=== PATIENT | female | born 1950 | race Caucasian/White ===

== ENCOUNTER → 2023-06-19 10:37 | Outpatient (REF) | payer MEDICARE, OTHER, SELFPAY | LOC: WDC 10:37 | PROVIDERS: ATTENDING PHYSICIAN Family Medicine | DX: R92.2 Inconclusive mammogram (principal) | CPT/HCPCS: 76641 ==

== ENCOUNTER → 2023-09-10 09:43 | Outpatient (REF) | payer MEDICARE, OTHER, SELFPAY | LOC: HWRAD 09:43 | PROVIDERS: ATTENDING PHYSICIAN Urology; FAMILY PHYSICIAN Family Medicine | DX: N39.0 Urinary tract infection, site not specified (principal); N20.0 Calculus of kidney | CPT/HCPCS: 76775 ==

== ENCOUNTER → 2023-09-11 08:30 | Outpatient (REF) | payer MEDICARE, OTHER, SELFPAY ==
[2023-09-11 09:45] LABS: % Basophils 0.7 % (0-2); % Immature Granulocytes 0.3 % (0-0.5); % Lymphocytes 14.1 % (20.5-51.1); % Monocytes 7.7 % (1.7-9.3); % Neutrophils 77.2 % (42.2-75.2); Absolute Lymphocytes 0.8 10^3/uL (1.2-3.4); Absolute Monocytes 0.4 10^3/uL (0.1-0.6); Absolute Neutrophils 4.4 10^3/uL (1.4-6.5); Hematocrit 41.4 % (37.0-47.0); Hemoglobin 14.1 g/dL (12.0-16.0); Mean Corp Hgb Conc. 34.1 g/dL (33.0-37.0); Mean Corpuscular Hgb 30.8 pg (27.0-31.0); Mean Corpuscular Volume 90.4 fL (81.0-99.0); Mean Platelet Volume 9.5 fL (7.4-10.4); Nucleated Red Blood Cells % 0 %; Platelet Count 270 10^3/uL (130-400); Red Blood Cell Count 4.58 10^6/uL (4.20-5.40); Red Cell Dist. Width 13.2 % (11.5-14.5); White Blood Cell Count 5.7 10^3/uL (4.8-10.8)
[2023-09-11 09:47] LABS: Urine Albumin Negative (Neg - Trace); Urine Bilirubin Negative (Negative); Urine Character Clear (Clear); Urine Color Yellow; Urine Glucose Negative (Negative); Urine Ketone Negative (Negative); Urine Leukocyte Negative (Negative); Urine Nitrite Negative (Negative); Urine Occult Blood Negative (Negative); Urine Specific Gravity 1.005 (<1.030); Urine Urobilinogen Negative (Neg - 1+); Urine pH 6.5 (5.0-9.0)
[2023-09-11 12:32] LABS: Vitamin D, 25-OH*** 40.2 ng/mL (30-80)
[2023-09-11 12:46] LABS: TSH Reflex To Free T4 0.88 uIU/ml (0.47-4.68)
[2023-09-11 12:58] LABS: ALT (SGPT) 22 U/L (0-35); AST (SGOT) 26 U/L (14-36); Albumin 4.3 g/dl (3.5-5.0); Alkaline Phosphatase 93 U/L (38-126); Blood Urea Nitrogen 15 mg/dl (7-17); Calcium 9.6 mg/dl (8.4-10.2); Carbon Dioxide 28 mmol/L (22-30); Chloride 99 mmol/L (98-107); Glucose 90 mg/dl (70-99); HDL Cholesterol 69 mg/dl; LDL Cholesterol, Calculated 114 mg/dl; Potassium 4.4 mmol/L (3.5-5.1); Sodium 134 mmol/L (135-145); Total Bilirubin 1.2 mg/dl (0.2-1.3); Total Cholesterol 201 mg/dl (50-199); Total Protein 6.6 g/dl (6.3-8.2); Triglyceride 90 mg/dl (10-149); Very Low Density Lipoprotein 18 mg/dl (0-30); eGFR > 60.00
== END ==
LOC: HWLAB 08:30
PROVIDERS: ATTENDING PHYSICIAN Family Medicine
DX: I10 Essential (primary) hypertension (principal); Z79.899 Other long term (current) drug therapy; M81.0 Age-related osteoporosis without current pathological fracture; Z87.442 Personal history of urinary calculi; Z87.440 Personal history of urinary (tract) infections
CPT/HCPCS: 36415; 80053; 80061; 81003; 82306; 84443; 85025

== ENCOUNTER → 2023-12-10 09:47 | Outpatient (REF) | payer MEDICARE, OTHER, SELFPAY | LOC: HWRAD 09:47 | PROVIDERS: ATTENDING PHYSICIAN Family Medicine; REFERRING PHYSICIAN Obstetrics & Gynecology | DX: Z12.31 Encounter for screening mammogram for malignant neoplasm of breast (principal); Z80.41 Family history of malignant neoplasm of ovary; Z80.3 Family history of malignant neoplasm of breast | CPT/HCPCS: 76830; 76856; 77063; 77067 ==

== ENCOUNTER → 2024-09-07 12:38 | Outpatient (REF) | payer MEDICARE, OTHER, SELFPAY | LOC: WDC 12:38 | PROVIDERS: ATTENDING PHYSICIAN Family Medicine | DX: R92.2 Inconclusive mammogram (principal) | CPT/HCPCS: 76641 ==

== ENCOUNTER → 2024-09-22 07:34 | Outpatient (REF) | payer MEDICARE, OTHER, SELFPAY ==
[2024-09-22 09:17] LABS: % Basophils 0.6 % (0-2); % Immature Granulocytes 0.2 % (0-0.5); % Lymphocytes 14.4 % (20.5-51.1); % Monocytes 7.5 % (1.7-9.3); % Neutrophils 77.3 % (42.2-75.2); Absolute Lymphocytes 0.8 10^3/uL (1.2-3.4); Absolute Monocytes 0.4 10^3/uL (0.1-0.6); Hematocrit 42.5 % (37.0-47.0); Hemoglobin 14.3 g/dL (12.0-16.0); Mean Corp Hgb Conc. 33.6 g/dL (33.0-37.0); Mean Corpuscular Hgb 30.6 pg (27.0-31.0); Mean Corpuscular Volume 90.8 fL (81.0-99.0); Mean Platelet Volume 9.5 fL (7.4-10.4); Nucleated Red Blood Cells % 0 %; Platelet Count 280 10^3/uL (130-400); Red Blood Cell Count 4.68 10^6/uL (4.20-5.40); Red Cell Dist. Width 13.2 % (11.5-14.5); White Blood Cell Count 5.2 10^3/uL (4.8-10.8)
[2024-09-22 09:27] LABS: Urine Albumin Negative (Neg - Trace); Urine Bilirubin Negative (Negative); Urine Character Clear (Clear); Urine Color Yellow; Urine Glucose Negative (Negative); Urine Ketone Negative (Negative); Urine Leukocyte Negative (Negative); Urine Nitrite Negative (Negative); Urine Occult Blood Negative (Negative); Urine Urobilinogen Negative (Neg - 1+)
[2024-09-22 09:55] LABS: ALT (SGPT) 32 U/L (0-35); AST (SGOT) 26 U/L (14-36); Albumin 4.5 g/dl (3.5-5.0); Alkaline Phosphatase 82 U/L (38-126); Blood Urea Nitrogen 17 mg/dl (7-17); Calcium 9.7 mg/dl (8.4-10.2); Carbon Dioxide 26 mmol/L (22-30); Chloride 106 mmol/L (98-107); Glucose 101 mg/dl (70-99); HDL Cholesterol 74 mg/dl; LDL Cholesterol, Calculated 101 mg/dl; Potassium 4.7 mmol/L (3.5-5.1); Sodium 138 mmol/L (135-145); Total Cholesterol 194 mg/dl (50-199); Total Protein 6.8 g/dl (6.3-8.2); Triglyceride 98 mg/dl (10-149); Very Low Density Lipoprotein 19 mg/dl (0-30); eGFR > 60.00
[2024-09-22 10:14] LABS: TSH Reflex To Free T4 0.88 uIU/ml (0.47-4.68)
== END ==
LOC: HWLAB 07:34
PROVIDERS: ATTENDING PHYSICIAN Family Medicine
DX: Z87.442 Personal history of urinary calculi (principal); I10 Essential (primary) hypertension; Z79.899 Other long term (current) drug therapy
CPT/HCPCS: 36415; 80053; 80061; 81003; 84443; 85025

== ENCOUNTER 2024-11-14 00:17 | Observation (INO) | payer MEDICARE, OTHER, SELFPAY ==
[2024-11-13] VITALS (9 sets, daily range): BP systolic 133–166; BP diastolic 48–66; PULSE 101–104; BMI 23.3
[2024-11-13 19:42] LABS: ALT (SGPT) 26 U/L (0-35); AST (SGOT) 26 U/L (14-36); Albumin 4.5 g/dl (3.5-5.0); Alkaline Phosphatase 97 U/L (38-126); Blood Urea Nitrogen 26 mg/dl (7-17); Calcium 9.8 mg/dl (8.4-10.2); Carbon Dioxide 29 mmol/L (22-30); Chloride 103 mmol/L (98-107); Glucose 208 mg/dl (70-99); Potassium 4.7 mmol/L (3.5-5.1); Sodium 138 mmol/L (135-145); Total Protein 6.8 g/dl (6.3-8.2); eGFR > 60.00
[2024-11-13 19:45] LABS: Hematocrit 41.0 % (37.0-47.0); Hemoglobin 13.7 g/dL (12.0-16.0); Mean Corp Hgb Conc. 33.4 g/dL (33.0-37.0); Mean Corpuscular Volume 91.5 fL (81.0-99.0); Nucleated Red Blood Cells % 0 %; Platelet Count 269 10^3/uL (130-400); Red Cell Dist. Width 13.2 % (11.5-14.5)
--- NOTE | 2024-11-13 21:13 | ED.GENMED ---
History of Present Illness
General
Chief Complaint: Fainting Sensation
Source: patient
Exam Limitations: none
Time Seen by Provider: 11/13/24 20:25
Nursing documentation reviewed up to this point in time: agreed with
History of Present Illness
History of Present Illness:
74-year-old female with history of hypertension who presents the emergency department after syncopal event at dinner. Patient states that she was sitting in a monae eating dinner with her when she started to feel extremely lightheaded. She
then seemed to slump over in the monae. Patient's states that she did appear to lose consciousness briefly however seem to awaken as they were pulling her from the boot. She then had an additional episode of near syncope while in the main
entrance to the restaurant. That was when 911 was called.
At this point�patient states she feels that her heart is pounding however feels anxious. Patient denies any chest pain or shortness of breath preceding syncopal event tonight. Patient denies any episodes of nausea or vomiting. She no longer feels
lightheaded.
Of note�patient does state that she had a recent Mohs procedure on her left lower leg. She has since had a lingering pain near her left ankle which her content manager believes is more of a neuropathic pain following surgery. She has having no
difficulty ambulating and has had no swelling of her left leg. No recent travel. No history of blood clots.
Past History
Past History
ED Past Medical History: HTN (Dr. Aiken increased her BP med Metoprolol in 01/13 from 1/2 tab to 1 tab daily of 25 mg.)
ED Past Surgical History: Other (partial left nephrectomy for large kidney stones 30 years ago.)
Social History
Tobacco: Non-smoker
Alcohol: None
Drug: None
Personal:
Living: with family
Employment: Employed ([employer] 35 years ago. [place] teeth removed 25 yrs ago.)
Family History
Family History: Negative Early CAD or Sudden
Review of Systems
Review of Systems
Allergies reviewed?: Yes
All Other Systems: ROS reviewed and negative except as documented in HPI and ROS
Phy Exam
Physical Exam
Physical Exam:
Vitals: Patient's vital signs are stable. Afebrile
General: Patient is well appearing, no acute distress. Nontoxic appearing
Skin: Warm and dry, no rashes or lesions
Head: Normocephalic, atraumatic
Eyes: Sclera nonicteric. EOMs intact. No nystagmus.
Throat: Protecting airway
Neck: Normal ROM, no cervical spine tenderness, no meningismus
Cardiac: Regular rate and rhythm, no murmurs.
Pulm: Normal respiratory effort, no wheezes, rales, rhonchi heard on exam
Abdomen: No abdominal tenderness.
Extremities: Well-healing scar on the left posterior distal calf. No bony tenderness of left lower extremity. 2+ left palpable DP pulse. Negative Homans' sign.
Neuro: AAOx3. Grossly intact.
Psychiatric: Normal affect.
Course
Orders/Labs/Results
Orders:
Orders
11/13/24 19:12
ECG [Electrocardiogram (*1)] Urgent
Reason for Study: Syncope
EKG- Treatment ONCE
11/13/24 19:22
Complete Blood Count/With Diff Urgent
Comprehensive Metabolic Panel Urgent
Magnesium Urgent
TSH Reflex To Free T4 Urgent
Comment: ADDED
11/13/24 20:53
Orthostatic VS- Treatment ONCE
0.9% Sodium Chloride 1000 ml [Nss] 1,000 ml IV BOLUS
11/13/24 21:37
Troponin I Urgent
11/13/24 21:52
D-Dimer Urgent
11/13/24 23:25
Add On- LAB Urgent
Tests Added?: magnesium, TSH w/ reflex to T4
11/14/24 00:00
Admit/Transfer Patient As Directed
Co-Sign Provider:
Level of Care: Observation services
Assign to:: Telemetry
Physician / Group: Jose Alberto
Diagnosis: Syncope
Reason for Telemetry: Syncope
Date to Stop Telemetry: 11/16/24
Time to Stop Telemetry: 11:00
Code Status As Directed
Resuscitation Status: Full Code
PRN Pain Medication Management As Directed
May give lesser potent ordered pain med per pt: Yes
preference::
Protocol:: Medication orders for pain may be administered in a
manner that supports deferring to patient preference
when the pt is:
- Requesting an ordered lesser potent pain medication.
Least to most potent pain medications are defined
as: acetaminophen < NSAID < tramadol < opioids
(morphine, oxycodone, hydromorphone).
- Requesting a lesser dose of the same medication IF
ORDERED.
- Requesting a less intrusive route of administration
if both routes are prescribed by the provider (PO <
IV).
11/14/24 01:46
Acetaminophen [Tylenol] 650 mg PO Q4HPRN PRN
11/14/24 01:46
Echo 2D MMode Doppler [Echo 2D MMode Color/Doppler] Routine
Reason for Study: Syncope
Activity As Directed
Activity Level: Ambulate
With Assistance
EKG with chest pain [ECG as needed] As Directed
ECG as needed for:: Chest Pain
I/O [Intake/ Output] As Directed
Frequency: Per unit guidelines
Orthostatic Vital Signs As Directed
Orthostatic VS Frequency: BID
Pneumatic Compression Sleeves As Directed
Type: Knee high
Vital Signs As Directed
Frequency: Per unit guidelines
Weight As Directed
Frequency: Daily
Oxygen Therapy [O2 Therapy] [RESP] Routine
Titrate/Wean O2 to maintain O2 sat greater than (%): 94
DX Deep Vein Thrombosis Video Routine
11/14/24 06:00
EKG [Electrocardiogram (*1)] IN AM
Reason for Study: Chest Pain
Regular
At Your Request: Full Participation
Basic Metabolic Panel IN AM
Complete Blood Count/No Diff IN AM
11/14/24 08:00
Metoprolol Xl [Toprol Xl] 25 mg PO DAILY
11/16/24 11:00
DC Protocol for Telemetry ONCE
Abnormal Lab Results
11/13/24
19:22
Absolute Lymphs (auto) 1.1 L 10^3/uL
(1.2-3.4)
Neutrophils % 76.6 H %
(42.2-75.2)
Lymphocytes % 17.0 L %
(20.5-51.1)
BUN 26 H mg/dl
(7-17)
Glucose 208 H mg/dl
(70-99)
11/13/24 19:22
11/13/24 19:22
Vital Signs
Initial and Last Documented VS:
Initial Vital Signs
Temp Pulse Resp BP Pulse Ox
98.2 F 80 18 160/66 100
11/13/24 19:05 11/13/24 19:05 11/13/24 19:05 11/13/24 19:05 11/13/24 19:05
Last Documented Vital Signs
Temp Pulse Resp BP Pulse Ox
97.9 F 77 20 155/74 99
11/14/24 03:48 11/14/24 03:48 11/14/24 03:48 11/14/24 03:48 11/14/24 03:48
MDM/Problems Addressed
Differential Diagnosis Includes:
Not limited to: Vasovagal syncope, acute dehydration, orthostatic syncope, cardiac arrhythmia, etc.
MDM/Problems Addressed:
74-year-old female presenting after multiple syncopal events while seated out to dinner at this evening. She did have prodromal sensation of lightheadedness and denies any chest pain, shortness of breath, vomiting. No associated head trauma. No
history of similar symptoms. Patient mildly hypertensive with otherwise stable vital signs on arrival. She is well-appearing and in no distress. Cardio/pulmonary assessment unremarkable. Abdomen soft and nontender. She is perfusing well. She
does have a well-healing scar at her distal left leg from recent Mohs procedure without any bony tenderness or clinical evidence of DVT on exam. Differential includes acute dehydration, orthostasis, vasovagal syncope, cardiac arrhythmia, etc.
ED plan: Labs, troponin, EKG. Will give IV fluids and continue to monitor patient.
Update: Patient concerned about possible DVT in left lower leg following Mohs procedure. Patient states she has been relatively ambulatory since procedure and given superficial nature of Mohs�do not feel significant risk for DVT. However�will add
D-dimer to blood work for further eval.
Update: Labs reviewed. CBC without clinically significant abnormalities. CMP with mild elevation in BUN suggesting possible dehydration as well as hyperglycemia which may be secondary to dinner/dessert. However did discuss with patient advised to
repeat blood work to ensure fasting glucose normal. Troponin and D-dimer are normal. Patient received a liter of IV fluids and had normal orthostatic vital signs. Symptoms possibly secondary to dehydration versus vasovagal syncope. Prior to
discharge�it was brought to my attention that patient was found to have a run of asymptomatic tachycardia while on the monitor in emergency department. On my interpretation�possible SVT however patient seems to have converted spontaneously. At
this point she remains in normal sinus rhythm and asymptomatic. However�given evidence of tachycardia and syncopal events tonight�feel patient to be admitted to telemetry for further monitoring overnight. Patient accepted to hospitalist service in
stable condition.
Chronic conditions affecting care:
Hypertension
Acute Exacerbation and/or Progression of Chronic Illness:
Acutely hypertensive
*Pulse Oximetry
SaO2: 100
Oxygen Mode of Delivery: Room air
Patient hypoxic: no
*EKG
Interpreted by ED Provider?: Yes
EKG Intrepretation Date: 11/14/24
Interpretation: abnormal
Comparison EKG: changes noted
Heart Rate: 74
Rate: normal
Rhythm: sinus
[place]: normal axis
Interval: normal QT interval
QRS Pattern: normal QRS
Ischemia: non-specific ST changes
*Women'S Studies Lecturer Interpretation
Rate: tachycardiac
Interpretation: abnormal
Heart Rate: 144
Rhythm: SVT
*Critical Care Note
Total Time (30-74mins, 75-104mins- exclusive of procedures): Not Applicable
Patient Management
Discussion with other providers: Hospitalist
Escalation/DeEscalation of care consider admission/obs:
Admit for telemetry and further monitoring
ED Attending Note
-
Portions of this chart may have been created with voice recognition software.� Occasional wrong word or��sound alike� substitutions may have occurred due to the inherent limitations of voice recognition software.
Discharge Plan
Departure
Patient Disposition: Admit
Date of Disposition: 11/13/24
Time of Disposition: 23:25
Admit to: Telemetry
Presentation/result/management discussed w/ accepting MD/DO: Hospitalist
Discharge Problem:
Syncope, Tachycardia
Interventions
Interventions:
*Risk Screen - Suicide Last Done: 11/13/24 19:05
*General Assessment Last Done: 11/13/24 21:53
*Neglect/Abuse Screening Last Done: 11/13/24 19:05
*ED- Fall Risk Assessment Last Done: 11/13/24 21:53
*ED COVID-19 Vaccine History Last Done: 11/13/24 23:33
*Nursing Disposition Last Done: 11/14/24 01:30
ED- Cardiac Assessment Last Done: 11/13/24 21:53
ED- Neurological Assessment Last Done: 11/13/24 21:53
Discharge Date and Time
Discharge Date/Time: 11/14/24 01:30
[2024-11-13 22:15] LABS: Troponin I < 0.012 ng/ml
[2024-11-13 22:17] LABS: D-Dimer 0.50 ug/mlFEU (0.00-0.50)
[2024-11-13] MEDS: NSS 1000 IV (23:04)
[2024-11-14] VITALS (7 sets, daily range): BP systolic 123–171; BP diastolic 58–80; PULSE 71–105; BMI 23.8
--- NOTE | 2024-11-14 00:02 | HPS.HSE ---
Family Physician
-
Family Physician: Lesli Aiken
Chief Complaint
-
Syncope
History of Present Illness
Patient is a 74y F with PMH significant for hypertension and anxiety who presents to ED for evaluation after syncopal episode(s) this evening. History obtained from patient and her at the bedside. Patient states that she was feeling
well this evening and was out to dinner. She began to feel lightheaded and had then sense that she might pass out. She voiced this to her and then she did pass out. She was seated at the time. She lost consciousness for a brief time and
as then helped up by her and restaurant staff. While walking out of the restaurant, patient had a second syncopal episode. Again, very brief loss of consciousness. She was lowered to the floor by / staff and then helped into a
chair. 911 was called and patient was brought to the ED for further evaluation.
Here in the ED, patient complained of palpitations. She was noted to have periods of tachycardia on monitor with heart rates into the 140s at time. She had no recurrent lightheadedness and no recurrent syncope.
She denies any chest pain or dyspnea.
Patient denies any prior h/o syncopal events.
She underwent Mohs surgery to the L ankle about 2 weeks ago. Has been having significant neuropathic pain in the L ankle since that time. On no new medications.
Had sutures removed from this site no Thursday. No other recent medical issues, procedures, med changes, etc.
Medical History
Past Medical History
Past Medical History: Reports Other
Additional Past Medical History:
Hypertension
Anxiety
Squamous Cell Skin Cancer
Nephrolithiasis
Past Surgical History: Reports Other
Additional Past Surgical History:
Partial Left Nephrectomy (29yo)
T&A
Right Breast Biopsy (benign)
D&C
Mohs Surgery - L Ankle (October 2024)
Social History
Tobacco: Non-smoker
Alcohol: None
Drug: None
Family History
Family History: Not pertinent
Allergies / Home Medications
Allergies reflects when Allergies were last updated in [facility].
Home Medications with original date entered in [facility]
Allergy/Medication List:
Allergies
Allergy/AdvReac Type Severity Reaction Status Date / Time
Penicillins Allergy Unknown Unknown Verified 11/13/24 23:34
cefdinir Allergy Unknown Verified 11/13/24 23:34
Sulfa (Sulfonamide Allergy Unknown Verified 11/13/24 23:34
Antibiotics)
Home Medications
Culturelle 1 cap PO DAILY 11/13/24
calcium 500 mg tablet 500 mg PO DAILY 11/13/24
cranberry extract 200 mg capsule (Ellura) 200 mg PO DAILY 11/13/24
lorazepam 0.5 mg tablet 0.5 mg PO DAILY PRN anxiety 11/13/24
metoprolol succinate 25 mg capsule sprinkle, ext. release 24 hr 25 mg PO DAILY 11/13/24
Review of Systems
-
History Source: Patient and Family
A 12 point ROS was completed and negative except as noted: Yes
Constitutional: Reports Fatigue; Denies Fever or Chills
Respiratory: Denies Cough or Trouble Breathing
Cardiac: Reports Palpitations and Syncope; Denies Chest Pain or Diaphoresis
Abdomen/GI: Denies Abdominal Pain, Nausea, Vomiting or Diarrhea
: Denies Dysuria, Frequency or Flank Pain
Musculoskeletal: Denies Edema
Neurological: Reports Dizzy and Numbness (L ankle numbness / neuropathic pain.); Denies Headache or Weakness
Psych: Reports Anxiety; Denies Depression
Physical Exam
Vital Signs
Vital Signs
Temp Pulse Resp BP Pulse Ox
98.2 F 79 14 134/64 98
11/13/24 19:05 11/13/24 22:30 11/13/24 22:30 11/13/24 22:00 11/13/24 22:30
Physical Exam
General: Other (74y F in no acute distress.)
HEENT: Moist mucous membranes and PERRLA
Respiratory: Clear; No Wheezes, Rales or Rhonchi
Cardiac: S1/S2, Regular Rhythm and Murmur (II/ JIN)
GI: Soft, Non Tender, Non Distended and Normal Bowel Sounds
Musculoskeletal: No Clubbing, No Cyanosis and No Edema
Skin: Other (Post-surgical changes posterior L lower leg. Well-healed. No bleeding / discharge / erythema / etc.)
Neuro: AO x 3 and Nonfocal/grossly intact
Laboratory Results
-
11/13/24 19:22
11/13/24 19:22
Laboratory Results
Total Bilirubin 0.6 mg/dl (0.2-1.3) 11/13/24 19:22
AST 26 U/L (14-36) 11/13/24 19:22
ALT 26 U/L (0-35) 11/13/24 19:22
Alkaline Phosphatase 97 U/L (38-126) 11/13/24 19:22
Troponin I < 0.012 ng/ml 11/13/24 21:37
Impression/Plan
-
A/P: Patient is a 74y F with PMH significant for hypertension and anxiety who presents to ED for evaluation s/p syncopal episode(s) this evening.
Syncope
- Observe overnight for further evaluation and treatment.
- Reportedly had periods of SVT into the 140s here in the ED - but patient denies any associated lightheadedness / near-syncope during those episodes.
- Monitor on telemetry overnight.
- Follow for any new / recurrent symptoms.
- Check Echo.
- Cardiology evaluation for additional recommendations. ? ambulatory monitoring.
Benign Hypertension
- Stable. Continue metoprolol with holding parameters.
Generalized Anxiety
- Stable. Take lorazepam infrequently / PRN.
Skin Cancer
Neuropathic Pain
- s/p Mohs surgery L ankle two weeks ago.
- Issues with pain since that time.
- ? trial of gabapentin for pain control - but would hold on introduction of any new agents at this time / pending syncope evaluation.
DVT Prophylaxis: SCDs
Code Status: Full
[2024-11-14 00:03] LABS: Magnesium 2.2 mg/dl (1.6-2.3)
[2024-11-14] MEDS: ATIVAN 0.5 MG PO (05:17)
[2024-11-14] MEDS: TOPROL XL 25 MG PO (08:19)
[2024-11-14 09:09] LABS: Hematocrit 43.3 % (37.0-47.0); Hemoglobin 14.0 g/dL (12.0-16.0); Mean Corp Hgb Conc. 32.3 g/dL (33.0-37.0); Mean Corpuscular Volume 91.5 fL (81.0-99.0); Platelet Count 276 10^3/uL (130-400); Red Cell Dist. Width 13.3 % (11.5-14.5)
[2024-11-14 09:37] LABS: Blood Urea Nitrogen 18 mg/dl (7-17); Calcium 9.8 mg/dl (8.4-10.2); Carbon Dioxide 28 mmol/L (22-30); Chloride 107 mmol/L (98-107); Estimated Creatinine Clearance 64 ml/min; Glucose 99 mg/dl (70-99); Potassium 4.7 mmol/L (3.5-5.1); Sodium 141 mmol/L (135-145); eGFR > 60.00
--- NOTE | 2024-11-14 13:34 | W.PN.HOSP.TC ---
Addendum entered and electronically signed by Neftali Jean MD 11/14/24 18:18:
orthos improved. cardiology placed phototypesetting equipment monitor and patient will see them outpatient. dc today
time of discharge 37 minutes
Original Note:
Today's Communication/Plan
-
Monitor vitals
See plan
Monitor on telemetry
Cardiology evaluation
Check echo
Continue to monitor orthostatics
Assessment / Plan
Assessment / Plan
General: Other (74y F in no acute distress.)
HEENT: Moist mucous membranes and PERRLA
Respiratory: Clear; No Wheezes, Rales or Rhonchi
Cardiac: S1/S2, Regular Rhythm and Murmur (II/ JIN)
GI: Soft, Non Tender, Non Distended and Normal Bowel Sounds
Musculoskeletal:No Edema
Skin: Other (Post-surgical changes posterior L lower leg. Well-healed. No bleeding)
Neuro: AO x 3 and Nonfocal/grossly intact
Syncope
- Reportedly had periods of SVT into the 140s here in the ED - but patient denies any associated lightheadedness / near-syncope during those episodes.
- Monitor on telemetry
History of phototypesetting equipment monitor in past
Cardiology consulted
Echo pending
- Follow for any new / recurrent symptoms.
Benign Hypertension
- Stable. Continue metoprolol with holding parameters.
Orthostatic positive however patient has syncopal episode while sitting
Generalized Anxiety
- Stable. Take lorazepam infrequently / PRN.
Skin Cancer
Neuropathic Pain
- s/p Mohs surgery L ankle two weeks ago.
- Issues with pain since that time.
- ? trial of gabapentin for pain control - but would hold on introduction of any new agents at this time / pending syncope evaluation.
DVT Prophylaxis: SCDs
Code Status: Full
Anticipated Discharge: Within 24 hours
Subjective/Interval History
-
Date of Service: November 14, 2024
Denies pain
Objective Data
-
Labs:
Laboratory Results
11/14/24
08:41
WBC 9.4
Hgb 14.0
Hct 43.3
Plt Count 276
Sodium 141
Potassium 4.7
Chloride 107
Carbon Dioxide 28
BUN 18 H
Creatinine 0.5 L
Glucose 99
Calcium 9.8
Vital Signs:
Vital Signs
Temp Pulse Resp BP Pulse Ox
98.2 F 73 18 142/71 98
11/14/24 11:35 11/14/24 11:35 11/14/24 11:35 11/14/24 11:35 11/14/24 11:35
I&O
11/13/24 11/14/24 11/15/24
06:59 06:59 06:59
Intake Total 480 / 480
Balance 480 / 480
--- NOTE | 2024-11-14 13:58 | CON.CAR ---
Addendum entered and electronically signed by Jamie Crouch MD 11/14/24 19:26:
74-year-old woman admitted with syncope. Occurred while at dinner, was seated
PMH: Hypertension, anxiety, renal calculi, partial left nephrectomy, tonsillectomy, breast biopsy, D&C
PSH: Left ankle pain since Mohs surgery 2 weeks ago
Outpatient meds: Metoprolol ER 25 a day and as needed lorazepam
142/71, blood pressure drops approximately 24 points with standing, pulse goes from 79-105, head neck exam unremarkable, lungs are clear, no murmurs JVD carotids okay, abdomen benign extremities without clubbing cyanosis or edema
ECG sinus rhythm, nonspecific ST/T changes
Echo: Essentially normal
Hemoglobin 14.0, BUN/creatinine are 18 and 0.5, normal TSH
Impression:
Syncope, suspect vagal mechanism
Relatively brief runs of atrial tachycardia or SVT
Hypertension
Anxiety
Orthostatic hypotension
Renal calculi/partial nephrectomy
Other diagnoses as below by Racquel Castro. Reviewed in detail and agree, unless otherwise specified
Plan:
She presents with syncope that is most likely vagal in origin. However she is somewhat orthostatic as well though relatively hypotensive at baseline and she has no symptoms. Her echocardiogram is reassuring with normal LV function and no
significant valvular heart disease.
However she did have runs of atrial tachycardia, relatively slow and it is conceivable that her atrial tachycardia may have had an effect on top of the vagal mechanism. Currently, she is on metoprolol.
Anxiety could also be playing a role in her white coat hypertension and rapid heart rates in sinus rhythm here in the hospital.
We will place an outpatient monitor and arrange for outpatient follow-up.
I asked that she not drive until the monitor is back. She had no issues with this.
We will arrange for cardiac follow-up and placement of the monitor.
We reviewed proper hydration technique. For now we will not change her metoprolol dosing.
Okay to begin discharge planning.
Original Note:
Consultation
Consultation Request
Date/Time Consultation Requested: 11/14/2024
Date/Time Consultation Performed: 11/14/2024
Requesting Provider: Dr. Jean
Performing Provider: Racquel Castro PA-C for KULDIP Crouch
Reason for Consultation: Syncope
Medical History
-
History of Present Illness:
Patient has past medical history significant for hypertension, remote syncope, kidney stones and anxiety who presents to emergency department 11/13/2024 with an episode of syncope.
Patient was at restaurant eating with her when she began to feel lightheaded and expressed to her she might pass out. She briefly lost consciousness while seated at the table which was witnessed by her . While attempting to
walk out of the restaurant she had a sink and syncopal episode with once again very brief loss of consciousness. She was lowered to the floor by staff/ and 911 was called. She was provided IV fluid resuscitation. EKG in emergency
department demonstrated normal sinus rhythm with nonspecific T wave abnormality. Laboratory studies showed mildly elevated BUN of 26 with normal electrolytes. Troponin was negative. TSH was unremarkable at 3.63. While in the emergency department
patient had episodes of SVT/tachycardia with heart rates in the 140s but was asymptomatic and upon review of telemetry she did have additional episodes of tachycardia.
Patient has remote history of syncope and was seen by cardiology in 2009 who felt her episode was vagal mediated. She is maintained on Toprol 25 mg daily as outpatient for hypertension and palpitations. She reports significant anxiety when she
see's medical providers.
Past medical history:
Hypertension
Anxiety
Squamous cell skin cancer
Nephrolithiasis
Partial left nephrectomy
Past Medical History
Past Medical History: Other (See HPI)
Past Surgical History: Gynecological (D&C), Tonsilectomy (And adenoids) and Other (Partial left nephrectomy at 29 years old, Mohs surgery of left ankle October 2024)
Social History
Tobacco: Non-Smoker
Alcohol: None
Drug: None
Personal:
Living: With Family
Family History
Family History: CAD (Father)
Allergies / Home Medications
Allergy/AdvReac Type Severity Reaction Status Date / Time
Penicillins Allergy Unknown Unknown Verified 11/13/24 23:34
cefdinir Allergy Unknown Verified 11/13/24 23:34
Sulfa (Sulfonamide Allergy Unknown Verified 11/13/24 23:34
Antibiotics)
�Medication �Instructions �Recorded �Confirmed �Type
Culturelle 1 cap PO DAILY 11/13/24 11/13/24 History
calcium 500 mg tablet 500 mg PO DAILY 11/13/24 11/13/24 History
cranberry extract 200 mg capsule 200 mg PO DAILY 11/13/24 11/13/24 History
(Ellura)
lorazepam 0.5 mg tablet 0.5 mg PO DAILY PRN anxiety 11/13/24 11/13/24 History
metoprolol succinate 25 mg capsule 25 mg PO DAILY 11/13/24 11/13/24 History
sprinkle, ext. release 24 hr
Review of Systems
-
History Source: Patient
All other systems: Negative unless noted
Physical Exam
Vital Signs
Temp Pulse Resp BP Pulse Ox
98.2 F 73 18 142/71 98
11/14/24 11:35 11/14/24 11:35 11/14/24 11:35 11/14/24 11:35 11/14/24 11:35
GEN: No distress, awake, Ox3
HEENT: supple, anicteric, mmm
LUNGS: CTA, no wheezes/rales
CV: Reg, S1/S2, no murmur, rub or gallop
ABD: soft, BS+, NT/ND
EXT: No edema, clubbing or cyanosis
NEURO: Gross non-focal
SKIN: No rash, warm, dry, pink
Lab Results
11/14/24 08:41
11/14/24 08:41
Troponin I < 0.012 ng/ml 11/13/24 21:37
Impression / Plan
-
PCP: Lesli Aiken
Excavating Supervisor: None prior to admission, none until consultation Jamie Crouch
Impression:
Presented 11/13/2024 with syncope x 2
SVT/tachycardia with heart rates in 140s in emergency department
Hypertension
Anxiety
Squamous cell skin cancer
Nephrolithiasis
Partial left nephrectomy
24-hour Holter monitor August 2009: Sinus rhythm with no significant bradycardia arrhythmias or tachyarrhythmias. Rare PVCs and PACs including 1 atrial couplet and 1 triplet
Echo 11/14/2024: EF 55 to 60%. No significant valve disease.
Echo August 2009: EF 55%. No significant valve disease
Stress echo July 2008: Normal EF, 6:07 on Arsenio protocol. No ischemia at 85% predicted max heart rate
Plan:
-Presented 11/13/2024 with syncope x 2. First episode occurred while patient was sitting at table after eating a meal and she felt lightheaded. Second episode happen within a few minutes when patient attempted to get up and walk out of restaurant.
Loss of consciousness was very brief.
-Found to have brief episodes of sinus tachycardia/atrial tachycardia with heart rates in 140s while in emergency department and several episodes noted telemetry overnight and early this morning. Patient reports she believes it was related to
significant anxiety which caused her heart rates to increase. She denied having lightheadedness or dizziness during these episodes.
-Echo this admission demonstrated preserved ejection fraction and no significant valve disease.
-Laboratory studies unremarkable with normal TSH and electrolytes.
-Blood pressure has remained hypertensive most of admission. Orthostatic vitals had 24 mmHg drop from supine to standing with standing blood pressure of 140/73. Doubt orthostasis as a contributing factor. Patient reports that he blood pressures
are always high at the doctors office and she keeps a daily log of her BP and heart rates at home with readings 110's/60's-low 70's and heart rates in the 60's bpm. BP and HR due increase when she gets anxious.
-Discussed up titration of Toprol to 25 mg twice daily or adding 12.5 mg in the evening but she is hesitant to do this.
-I personally placed a 7-day outpatient monitor on patient prior to discharge and arranged cardiology follow up in 3-4 weeks. Pending monitor results will decide if increase in beta-briana is needed.
-Encourage patient to stay well-hydrated and change positions slowly.
HPI 11/14/2024:
Patient has past medical history significant for hypertension, remote syncope, kidney stones and anxiety who presents to emergency department 11/13/2024 with an episode of syncope.
Patient was at restaurant eating with her when she began to feel lightheaded and expressed to her she might pass out. She briefly lost consciousness while seated at the table which was witnessed by her . While attempting to
walk out of the restaurant she had a sink and syncopal episode with once again very brief loss of consciousness. She was lowered to the floor by staff/ and 911 was called. She was provided IV fluid resuscitation. EKG in emergency
department demonstrated normal sinus rhythm with nonspecific T wave abnormality. Laboratory studies showed mildly elevated BUN of 26 with normal electrolytes. Troponin was negative. TSH was unremarkable at 3.63. While in the emergency department
patient had episodes of SVT/tachycardia with heart rates in the 140s but was asymptomatic and upon review of telemetry she did have additional episodes of tachycardia.
Patient has remote history of syncope and was seen by cardiology in 2009 who felt her episode was vagal mediated. She is maintained on Toprol 25 mg daily as outpatient for hypertension and palpitations. She reports significant anxiety when she
see's medical providers.
Data Reviewed
-
EKG: Report Reviewed by me, Discussed with Physician, Discussed with Nurse and Discussed with Patient
Medical Tests (Nuc Med, Echo etc): Report Reviewed by me, Discussed with Physician and Discussed with Patient
Labs: Labs Reviewed by me, Discussed with Physician and Discussed with Patient
Old Records: Reviewed
--- NOTE | 2024-11-14 16:49 | PTCARENOTE ---
Pt AAO x3, pleasant and cooperative; anxious. RICE well, OOB to BR with minimal assistance; denies weakness/dizziness. VSS. Telemetry:NSR; outpatient compliance monitor placed on pt by Racquel MAIN. On room air- pulse ox 98%, no SOB noted. Abd
soft, rounded, denisse PO well. Voids in BR without difficulty. Resting in bed at present, no c/o. Will continue to monitor.
--- NOTE | 2024-11-14 18:18 | W.DCSUMMARY ---
Discharge Summary
Discharge Data
Date of Admission: 11/14/24
Date of Discharge: 11/14/24
-
Pending Results: No
Hospital Course
74-year-old female with past medical history of anxiety, hypertension, nephro lithiasis came to the hospital after having a syncopal episode. Patient was orthostatic positive and was treated with IV fluids along with SIMONE stockings. Over time her
orthostasis continued to improve. She also had runs of atrial tachycardia for which she was seen by cardiology. Echocardiogram was done which showed preserved ejection fraction. Prior to her discharge cardiology decided to place an outpatient
monitor for her heart rate and will follow patient outpatient. Since her symptoms continue to improve over time, she was then discharged home with instructions to follow-up with all her physicians outpatient.
Discharge Plan
-
Patient Disposition: Home (Routine Discharge)
Discharge Diagnosis/Procedures: Syncope
Orthostatic hypotension
Tachycardia
Diet: As tolerated
Activity: As tolerated
Driving Restrictions: As prior to admission
Bathing Restrictions: None
Others Tests: 7 day ambulatory Bardy monitor placed prior to discharge. Patient will take off monitor 11/22/24 and return to cardiology office [address] in the [facility] which is located behind the hospital on 11/22 or 11/23/2024.
Referrals:
Racquel Castro PA-C [Specified Professional Personl, Cardiology] - 12/14/24 3:20 pm
Referral Note: You have cardiology follow up with Racquel Castro PA-C in [address] in the [facility] with is located behind the hospital. If you are unable to make this please call [phone] to reschedule
Lesli Aiekn MD [Family Provider, Family Practice] - in less than 1 week
Prescriptions:
Continued
lorazepam 0.5 MG tablet
0.5 mg PO DAILY PRN (Reason: anxiety)
calcium 500 mg Tablet
500 mg PO DAILY
cranberry extract [Ellura] 200 mg Capsule
200 mg PO DAILY
metoprolol succinate 25 mg Capsule,Sprinkle,Er 24hr
25 mg PO DAILY
Culturelle
1 cap PO DAILY
Discharge Orders:
Discharge Patient (As Directed); Ordered 11/14/24
Ordered By: Neftali Jean
Discharge Date and Time
Discharge Date/Time: 11/14/24 19:23
Print Language: MOZAMBICAN
== END 2024-11-14 19:23 | disposition home or self-care (01) ==
LOC: 4 EAST ACU 00:17
PROVIDERS: Emergency Medicine; Physician Assistant; ADMITTING PHYSICIAN Hospitalist; ATTENDING PHYSICIAN Internal Medicine; CONSULT PHYSICIAN Internal Medicine Cardiovascular Disease; EMERGENCY PHYSICIAN Emergency Medicine; FAMILY PHYSICIAN Family Medicine
DX: I95.1 Orthostatic hypotension (principal); I10 Essential (primary) hypertension; R42 Dizziness and giddiness; M25.572 Pain in left ankle and joints of left foot; R00.2 Palpitations; R07.9 Chest pain, unspecified; R94.31 Abnormal electrocardiogram [ECG] [EKG]; F41.1 Generalized anxiety disorder; R79.89 Other specified abnormal findings of blood chemistry; I47.19 Other supraventricular tachycardia; I49.3 Ventricular premature depolarization; R01.1 Cardiac murmur, unspecified; Z87.442 Personal history of urinary calculi; Z90.5 Acquired absence of kidney; Z82.49 Family history of ischemic heart disease and other diseases of the circulatory system; Z85.828 Personal history of other malignant neoplasm of skin; Z88.0 Allergy status to penicillin; Z88.1 Allergy status to other antibiotic agents; Z88.2 Allergy status to sulfonamides; Z79.899 Other long term (current) drug therapy
CPT/HCPCS: 80048; 80053; 83735; 84443; 84484; 85025; 85027; 85379; 93005; 93306; 99285; G0378

== ENCOUNTER 2024-11-27 11:11 | Emergency (ER) | payer MEDICARE, OTHER, SELFPAY ==
[2024-11-27 11:13] VITALS: BP 197/81
[2024-11-27 12:10] VITALS: BP 189/63
--- NOTE | 2024-11-27 12:26 | ED.GENMED ---
History of Present Illness
General
Chief Complaint: Blood Pressure Problem
Time Seen by Provider: 11/27/24 12:01
History of Present Illness
History of Present Illness:
74-year-old female with history of hypertension presents to the emergency department for evaluation of an elevated blood pressure reading. States that she has checked her blood pressure daily since being discharged in the hospital after a syncopal
event and typically her readings are normal however this morning was elevated. She admits that she then checked it numerous times thereafter with increasing hypertension each time. She admits that this caused her to be dizzy and developing
increasing anxiety as a result of the blood pressure numbers. Sitting in the exam room she reports mild lightheadedness and 'a touch of a headache'. She is maintained on 25 mg of metoprolol succinate daily and has not changed this regimen. She
did also complete a Holter monitor earlier this week due to her recent syncopal event
Past History
Past History
ED Past Medical History: HTN (Dr. Aiken increased her BP med Metoprolol in 01/13 from 1/2 tab to 1 tab daily of 25 mg.)
ED Past Surgical History: Other (partial left nephrectomy for large kidney stones 30 years ago.)
Social History
Tobacco: Non-smoker
Alcohol: None
Drug: None
Personal:
Living: with family
Employment: Employed ([employer] 35 years ago. [place] teeth removed 25 yrs ago.)
Family History
Family History: Negative Early CAD or Sudden
Review of Systems
Review of Systems
Allergies reviewed?: Yes
All Other Systems: ROS reviewed and negative except as documented in HPI and ROS
Phy Exam
Physical Exam
Physical Exam:
GEN: Well appearing, NAD, WDWN
HEENT: Oral mucosa moist, no scleral icterus
Cardiac: Regular rate and rhythm, no murmurs
Lung: No respiratory distress, no tachypnea
MSK: No gross deformity or injuries
Skin: Good color, no pallor or jaundice, no rashes
Neuro: AO x3, moves all extremities freely
Psych: Calm, cooperative
Course
Orders/Labs/Results
Orders:
Orders
11/27/24 11:19
Electrocardiogram (*1) Urgent
Reason for Study: Hypertension, Benign
EKG- Treatment ONCE
Vital Signs
Initial and Last Documented VS:
Initial Vital Signs
Temp Pulse Resp BP Pulse Ox
97.7 F 92 18 197/81 100
11/27/24 11:13 11/27/24 11:13 11/27/24 11:13 11/27/24 11:13 11/27/24 11:13
Last Documented Vital Signs
Temp Pulse Resp BP Pulse Ox
97.7 F 71 9 154/58 98
11/27/24 11:13 11/27/24 12:56 11/27/24 12:56 11/27/24 12:56 11/27/24 12:56
MDM/Problems Addressed
MDM/Problems Addressed:
Patient is clinically well and blood pressure gradually downtrended in the ED. I have reassured her that isolated hypertension is not likely to result in significant cardiovascular disease acutely and she should not check her blood pressure more
than once daily for the purposes of trending. I provided her with resources for outpatient counseling to help with her health related anxiety, she does have benzodiazepines for as needed use already
Comment
Comment:
EKG independently interpreted by me is somewhat limited due to patient motion artifact however no gross ST changes are noted, normal sinus rhythm
*Pulse Oximetry
SaO2: 99
Oxygen Mode of Delivery: Room air
Patient hypoxic: no
*Critical Care Note
Total Time (30-74mins, 75-104mins- exclusive of procedures): Not Applicable
ED Attending Note
-
Portions of this chart may have been created with voice recognition software.� Occasional wrong word or��sound alike� substitutions may have occurred due to the inherent limitations of voice recognition software.
Discharge Plan
Departure
Patient Disposition: Home (Routine Discharge)
Date of Disposition: 11/27/24
Time of Disposition: 12:53
Patient with high blood pressure during this ER visit?: No
Discharge Problem:
Elevated blood pressure reading, Anxiety about health
Instructions: BLOOD PRESSURE
Prescriptions:
No Action
lorazepam 0.5 MG tablet
0.5 mg PO DAILY PRN (Reason: anxiety)
calcium 500 mg Tablet
500 mg PO DAILY
cranberry extract [Ellura] 200 mg Capsule
200 mg PO DAILY
metoprolol succinate 25 mg Capsule,Sprinkle,Er 24hr
25 mg PO DAILY
Culturelle
1 cap PO DAILY
Referrals:
Lesli Aiken MD [Family Provider, Family Practice]
Activity Restrictions/Additional Instructions:
If your blood pressure remains elevated follow-up with your primary care doctor for medication discussion
If you measure your blood pressure and it is elevated do not recheck this as it will only create more anxiety
Follow-up with counseling as you will benefit from coping mechanisms to avoid health related triggers causing him increased anxiety
Interventions
Interventions:
*Risk Screen - Suicide Last Done: 11/27/24 11:13
*General Assessment Last Done: 11/27/24 11:13
*Neglect/Abuse Screening Last Done: 11/27/24 11:13
*ED- Fall Risk Assessment Last Done: 11/27/24 12:16
*Nursing Disposition Last Done: 11/27/24 13:08
ED- Cardiac Assessment Last Done: 11/27/24 12:16
ED- Neurological Assessment Last Done: 11/27/24 12:16
ED- Pulmonary Assessment Last Done: 11/27/24 12:16
Discharge Date and Time
Discharge Date/Time: 11/27/24 13:09
Print Language: FAROESE
[2024-11-27 12:56] VITALS: BP 154/58
== END 2024-11-27 13:09 | disposition home or self-care (01) ==
LOC: EMR 11:11
PROVIDERS: EMERGENCY PHYSICIAN Emergency Medicine; FAMILY PHYSICIAN Family Medicine
DX: I10 Essential (primary) hypertension (principal); F41.9 Anxiety disorder, unspecified; Z90.5 Acquired absence of kidney
CPT/HCPCS: 99283; 93005